=== PATIENT | female | born 1995 | race Caucasian/White ===

== ENCOUNTER 2016-06-26 11:37 | Outpatient (CLI) | payer MEDICAID | END 2016-06-26 11:38 | disposition home or self-care (01) | DX: Z36 Encounter for antenatal screening of mother (principal) ==

== ENCOUNTER 2016-10-16 08:58 | Outpatient (CLI) | payer MEDICAID ==
[2016-10-16 10:31] LABS: BASOPHILS % (AUTO) 0.1 %; EOSINOPHILS % (AUTO) 0.5 %; HCT - HEMATOCRIT 31.2 % (37.0-47.0); HGB - HEMOGLOBIN 10.7 g/dL (12.0-16.0); LYMPHOCYTES # (AUTO) 0.5 10^3/uL (1.5-3.5); MEAN CORPUSCULAR HEMOGLOBIN 28.9 pg (27.0-31.0); MEAN CORPUSCULAR HGB CONC 34.4 g/dL (32.0-36.0); MEAN PLATELET VOLUME 8.5 fL (7.9-10.8); MONOCYTES # (AUTO) 0.4 10^3/uL (0.0-1.0); NEUTROPHILS # (AUTO) 8.9 10^3/uL (1.5-6.6); NEUTROPHILS % (AUTO) 90.4 %; RED BLOOD COUNT 3.71 10^6/uL (4.20-5.40); RED CELL DISTRIBUTION WIDTH 12.8 % (12.0-15.0); UNCORRECTED WHITE BLOOD COUNT 9.8 x10^3/uL; WHITE BLOOD COUNT 9.8 x10^3/uL (4.8-10.8)
[2016-10-16 10:32] LABS: BILIRUBIN,URINE NEGATIVE (NEGATIVE); PH,URINE 6.5 PH (5.0-7.5)
[2016-10-16 10:39] LABS: UR CULTURE IF IND INDICATED; WBC,URINE 0-3 /HPF (0-5)
--- NOTE | 2016-10-16 16:36 | Ultrasound Preliminary Report ---
Exam: US Retroperitoneal Limited IMPRESSION: 1. No right renal mass, stones or hydronephrosis. 2. Bladder and left kidney not imaged. [facility] SITE ID: [id number]
[2016-10-16 17:01] VITALS: BP 114/63
--- NOTE | 2016-10-16 18:14 | Ultrasound Report ---
EXAM: RENAL ULTRASOUND EXAM DATE: 10/16/2016 02:53 PM. CLINICAL HISTORY: Right flank pain, possible kidney stone. COMPARISON: None. TECHNIQUE: Real-time scanning was performed with static images obtained. FINDINGS: Right Kidney: 10.3 x 4.5 x 4.6 cm. Normal echotexture with no stones, contour-deforming masses, or hy dronephrosis. Left Kidney: Not imaged. Bladder: Not imaged. IMPRESSION: 1. No right renal mass, stones or hydronephrosis. 2. Bladder and left kidney not imaged. [facility] Referring Provider Line: [phone] SITE ID: [id number]
--- NOTE | 2016-10-17 07:33 | DISCHARGE SUMMARY ---
DATE OF ADMISSION: 10/16/2016 DATE OF DISCHARGE: 10/16/2016 DIAGNOSES: 1. A 22 week 2 day gestation. 2. Maternal history of Tetralogy of Fallot. 3. Abdominal pain. 4. Right flank pain. The patient is a 20-year-old prima at 22 weeks 2 days gestation who reports yesterday decreas ed movement accompanied by a 6/10 bilateral lower abdominal pain with some spastic component. T his radiated into the lumbar region. She has known history Tetralogy of Fallot and has been referred on to [facility]. She has no fevers, foul discharge, or dysuria. She has had no recent fever, chills, or night sweats. There are no upper respiratory infect ion symptoms. Negative nausea, vomiting, and diarrhea. PHYSICAL EXAMINATION: GENERAL: Well groomed, pleasant, attended by mother and father. VITAL SIGNS: Temperature 98.4, heart rate 70, blood pressure 111/67, respirations 16. ABDOMEN: No epigastric tenderness. No hepatosplenomegaly. Right flank pain to percussion. No left fla nk pain. Uterus appropriate size for dates. Mild tenderness in both lower segments consistent with round ligam ent pain. Pelvic exam offered, but declined. Obstetric ultrasound preliminary report: Viable IUP, vertex with growth consistent with LMP. VIPIN is 1 3.7; cervix 139. Renal ultrasound: No evidence of urolithiasis. LABORATORY DATA: White count 9.8, hemoglobin 10.7, normal indices. Urinalysis clear yellow, protein, glucose, ketones, blood negative. Nitrite negative. Some leukocyte esterase, culture pending. ASSESSMENT: This patient is at 22 weeks gestation and complains of lower abdominal pain which may be consistent with round ligament pain. However, her right flank pain is not explained. There is no bloo d in the urine or evidence of stone on ultrasound. Possibly this reflects muscle strain, but there is nothing in her history to indicate over-exertion. PLAN: The patient is discharged home to followup with her high risk appointment on Sunday at the [facility]. She was given warning signs and call back instructions. If her final ultrasound s are significantly changed we will notify patient right away. JOB #: [id number] EXT JOB #:[id number]
--- NOTE | 2016-10-17 08:19 | Ultrasound Report ---
OB FOLLOWUP: 10/16/2016 CLINICAL INDICATION: Decreased movement. TECHNIQUE: Real-time scanning was performed with telesales representative static images obtained. LAST MENSTRUAL PERIOD 05/13/2016 Clinical Age 22 weeks 2 days US Age 22 weeks 1 day EFW Hadlock 505 g EFW% Hadlock 42% Heart Rate 134 bpm EDC 02/17/2017 US EDC 02/18/2017 BPD Hadlock 21 weeks 4 days; Mean mm 51.3 HC Hadlock 21 weeks 6 days; Mean mm 196.3 AC Hadlock 22 weeks 5 days; Mean mm 179.0 FL Hadlock 22 weeks 2 days; Mean mm 38.4 Presentation --- Placental Location posterior Cervical Length 3.8 cm Amniotic Fluid 13.85 cm FINDINGS: There is a single viable intrauterine gestation, in variable position. heart rate is 134 BPM. The placenta is posterior, without evidence of previa. Amniotic fluid volume is normal, with an VIPIN of 13.9. The cervix is unremarkable, measuring 3.8 cm. By size, the fetus measures 22.1 weeks (22.3 weeks by LMP). IMPRESSION: SINGLE VIABLE INTRAUTERINE GESTATION, WITH SIZE IN KEEPING WITH LMP DATING. POSTERIOR PLACENTA, WITHOUT EVIDENCE OF PREVIA. NORMAL VIPIN. NO EVIDENCE OF CERVICAL FUNNELLING. MTDD
--- NOTE | 2016-10-21 00:22 | Labor Flowsheet ---
Labor Flowsheet Datetime Report Generated by CPN: 10/21/2016 00:22 Datetime: 10/21/2016 00:09 Pulse: 73 SpO2 (%): 99 Datetime: 10/21/2016 00:04 VITAL SIGNS NBP Sys/Rebecca/Mean (mmHg): 137 : 83 : 94 Temperature (F): 97.9 Temperature (C): 36.6 Temperature (C): 36.6
== END 2016-10-16 16:55 | disposition home or self-care (01) ==
LOC: WFO 08:58 → FBP 08:59 → WFO 16:55
PROVIDERS: ATTEND Obstetrics & Gynecology
DX: O36.8120 Decreased fetal movements, second trimester, not applicable or unspecified (principal); Z3A.22 22 weeks gestation of pregnancy; O99.89 Other specified diseases and conditions complicating pregnancy, childbirth and the puerperium; R10.30 Lower abdominal pain, unspecified; Q21.3 Tetralogy of Fallot
CPT/HCPCS: 36415; 76775; 76816; 80306; 81001; 85025; 87086; 99213

== ENCOUNTER 2016-11-06 08:00 | Outpatient (CLI) | payer MEDICAID | END 2016-11-06 23:59 | disposition home or self-care (01) | LOC: LAB.WCP 08:00 | PROVIDERS: ATTEND Physician Assistant Medical | DX: N39.0 Urinary tract infection, site not specified (principal) | CPT/HCPCS: 87077; 87086 ==

== ENCOUNTER 2016-12-22 15:43 | Emergency (ER) | payer OTHER, MEDICAID ==
--- NOTE | 2016-12-22 19:06 | ED Physician Documentation ---
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 has been having pain near pubic symphysis for a little while, hurts to get up and walk etc today slipped on wet floor at work and fell in a sort of one leg forward one leg backward splits pain to pubic symphysis much worse did not hit abd but having RUQ pain now no bleeding, no leaking, has been having mucous dc for a while already checked by OB no head or neck injury Review of Systems Cardiac: denies: Chest pain / pressure Respiratory: denies: Dyspnea GI: reports: Abdominal Pain : reports: Now EGA (32 weeks) Musculoskeletal: denies: Neck pain Neurologic: denies: Head injury Endocrine: denies: Easy bruising / bleeding Immunocompromised: denies: Immunocompromised PD PAST MEDICAL HISTORY - Past Medical History Cardiovascular: Arrhythmia Respiratory: None Neuro: None Endocrine/Autoimmune: None GI: None EDUCATION 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: None : None HEENT: None Psych: None Musculoskeletal: None Derm: None - Past Surgical History Past Surgical History: No Cardiovascular: Pacemaker - Present Medications Home Medications: Ambulatory Orders Medication Instructions Recorded Confirmed No Known Home Medications [No 01/14/16 12/22/16 Known Home Medications] - Allergies Allergies/Adverse Reactions: Allergies Allergy/AdvReac Type Severity Reaction Status Date / Time iodine AdvReac Rash Verified 12/22/16 16:23 - Social History Does the pt smoke?: No Smoking Status: Never smoker Does the pt drink ETOH?: Yes Does the pt have substance abuse?: No - Immunizations Immunizations are current?: Yes - POLST Patient has POLST: No PD ED PE NORMAL - Vitals Vital signs reviewed: Yes - HEENT HEENT: Atraumatic - Cardiac Cardiac: RRR - Respiratory Respiratory: No respiratory distress, Clear bilaterally - Abdomen Abdomen: Soft, Other (gravis, TTP RUQ no brusing, no palp ctx) - Female Female : Other (TTP over pubi c sumphysis pelvis otherwise stable and NT) - Derm Derm: Normal color - Extremities Extremities: No deformity - Neuro Neuro: No motor deficit, No sensory deficit Results - Vitals Vitals: Vital Signs - 24 hr 12/22/16 12/22/16 15:47 19:30 Temperature 36.8 C 36.3 C L Heart Rate 70 70 Respiratory 16 18 Rate Blood Pressure 121/61 131/68 H O2 Saturation 998 H 100 Oxygen O2 Source Room air - Rads (name of study) ruq sono Radiology: See rad report (no FF, there are 2 spleens in UQ c/w prior CT with mirror image abd anatomy) PD MEDICAL DECISION MAKING - ED course ED course: pelvic pain seems to be pubic symphysis laxity likely 2/2 state and worse after injury - hx and exam do not suggest fx and I explained why xray not appropriate at this time will sono ruq for FF as well as OB sono to eval for abruption pt thinks she is AB + : no vag bleed or abd blow so do not think would need rhogam even if RH neg d/w OB Dr Mcduffie and she rec pt come over to OB for monitoring last VS BP was high - pt already in L&D - I called over to advise L&D staff Departure - Departure Disposition: 01 Home, Self Care Clinical Impression: Pain in symphysis pubis during Fall Qualifiers: Encounter type: initial encounter Qualified Code(s): W19.XXXA - Unspecified fall, initial encounter Qualifiers: Weeks of gestation: 32 weeks Qualified Code(s): Z3A.32 - 32 weeks gestation of Condition: Good Comments: I don't think you have a fracture of the pelvis, - the pain seems to be localized of the pubic symphysis and not the bones - this joint stretches during normally and was likely aggravated by the fall The ultrasounds do not show any internal bleeding or any tearing of the placenta Please go over to Labor and Delivery now for monitoring Dr Mcduffie will meet you there
[2016-12-22] MEDS ORDERED: ACETAMINOPHEN 325 MG TABLET PO STA (19:09)
[2016-12-22] MEDS ORDERED: ACETAMINOPHEN 325 MG TABLET PO ONE (19:20)
--- NOTE | 2016-12-22 19:21 | Ultrasound Preliminary Report ---
Exam: US Abdomen Limited Impression: 1. No free fluid in the upper or lower abdomen. 2. There are 2 spleens visualized in the right upper quadrant, consistent with the findings seen on t he previous abdominal CT of 01/14/2016, with mirror image abdominal anatomy. SITE ID: [id number]
--- NOTE | 2016-12-22 19:24 | Ultrasound Report ---
EXAM: ABDOMEN ULTRASOUND LIMITED, RUQ EXAM DATE: 12/22/2016 06:51 PM. CLINICAL HISTORY: Fall ruq pain, , anatomic variant of abdomen anatomy. COMPARISON: CT abdomen 01/14/2016. TECHNIQUE: Real-time scanning was performed with static images obtained. FINDINGS: A right upper quadrant ultrasound was performed. There are 2 spleens visualized in the right upper qu adrant. The spleens demonstrate homogeneous vascularity without adjacent fluid collection. One spleen measures 14 x 9.7 x 5.7 cm. A second spleen measures 9.3 x 4.6 x 2.3 cm. No right upper quadrant or left upper quadrant free fluid. No lower quadrant free fluid. Impression: 1. No free fluid in the upper or lower abdomen. 2. There are 2 spleens visualized in the right upper quadrant, consistent with the findings seen on t he previous abdominal CT of 01/14/2016, with mirror image abdominal anatomy. Referring Provider Line: [phone] SITE ID: [id number]
--- NOTE | 2016-12-22 19:33 | Ultrasound Preliminary Report ---
Exam: US OB Limited IMPRESSION: Intrauterine fetus with cardiac activity and no ultrasound evidence of placental abruptio [place] PEPPER SITE ID: [id number]
--- NOTE | 2016-12-22 19:35 | Ultrasound Report ---
EXAM: ULTRASOUND OBSTETRICAL LIMITED EXAM DATE: 12/22/2016 06:51 PM. CLINICAL HISTORY: Fall pelvis pain, ? abruption. COMPARISON: None. TECHNIQUE: Realtime ultrasound scanning was to images obtained. Transabdominal ultrasound performed. FINDINGS: Clinical age 31 weeks 6 days and clinical EDC 02/17/2017. The placenta is posterior. No evidence of placental abruption. Single intrauterine fetus in cephalic inferior position. cardiac activity is present with heart rate 123 bpm. Amniotic fluid volume subjectively appears normal. The VIPIN is 17.7 cm. Maximum vertica l pocket 5.4 cm. IMPRESSION: Intrauterine fetus with cardiac activity and no ultrasound evidence of placental abruptio nTyler PEPPER Referring Provider Line: [phone] SITE ID: [id number]
[2016-12-22 20:02] VITALS: BP 131/68
[2016-12-22] MEDS ORDERED: ACETAMINOPHEN 325 MG TABLET PO PRN (20:30)
== END 2016-12-22 19:52 | disposition home or self-care (01) ==
LOC: ED 15:43
DX: O99.89 Other specified diseases and conditions complicating pregnancy, childbirth and the puerperium (principal); M79.1 Myalgia; R10.2 Pelvic and perineal pain; R10.11 Right upper quadrant pain; R10.811 Right upper quadrant abdominal tenderness; W18.49XA Other slipping, tripping and stumbling without falling, initial encounter; Y92.129 Unspecified place in nursing home as the place of occurrence of the external cause; Y99.0 Civilian activity done for income or pay; Q89.09 Congenital malformations of spleen; Z3A.31 31 weeks gestation of pregnancy; Z95.0 Presence of cardiac pacemaker; Z87.74 Personal history of (corrected) congenital malformations of heart and circulatory system
CPT/HCPCS: 1040M; 76705; 76815; 99283; A9270; 99212

== ENCOUNTER 2016-12-22 19:21 | Outpatient (CLI) | payer OTHER, MEDICAID ==
[2016-12-23 00:41] VITALS: BP 121/65
== END 2016-12-23 01:05 | disposition home or self-care (01) ==
LOC: WFO 19:21 → FBP 20:02 → WFO 12-23 01:05
PROVIDERS: ATTEND Obstetrics & Gynecology
DX: O99.89 Other specified diseases and conditions complicating pregnancy, childbirth and the puerperium (principal); M79.1 Myalgia; R10.2 Pelvic and perineal pain; W18.49XA Other slipping, tripping and stumbling without falling, initial encounter; Y92.129 Unspecified place in nursing home as the place of occurrence of the external cause; Y99.0 Civilian activity done for income or pay; Z3A.31 31 weeks gestation of pregnancy; Q89.09 Congenital malformations of spleen; Z95.0 Presence of cardiac pacemaker; Z87.74 Personal history of (corrected) congenital malformations of heart and circulatory system
CPT/HCPCS: 99212

== ENCOUNTER 2017-02-10 20:42 | Outpatient (CLI) | payer MEDICAID ==
[2017-02-10] MEDS ORDERED: SODIUM CHLORIDE FLUSH 0.9% 10 ML SYRINGE IVP ONE (21:11)
[2017-02-10] MEDS ORDERED: LACTATED RINGERS 1,000 ML IV ONE (21:12)
[2017-02-10 21:38] LABS: BASOPHILS % (AUTO) 0.5 %; EOSINOPHILS # (AUTO) 0.1 10^3/uL (0.0-0.7); EOSINOPHILS % (AUTO) 0.8 %; HCT - HEMATOCRIT 30.2 % (37.0-47.0); HGB - HEMOGLOBIN 9.8 g/dL (12.0-16.0); LYMPHOCYTES # (AUTO) 1.4 10^3/uL (1.5-3.5); MEAN CORPUSCULAR HEMOGLOBIN 24.5 pg (27.0-31.0); MEAN CORPUSCULAR HGB CONC 32.6 g/dL (32.0-36.0); MEAN CORPUSCULAR VOLUME 75.2 fL (81.0-99.0); MEAN PLATELET VOLUME 9.3 fL (7.9-10.8); MONOCYTES # (AUTO) 0.6 10^3/uL (0.0-1.0); MONOCYTES % (AUTO) 6.9 %; NEUTROPHILS # (AUTO) 7.2 10^3/uL (1.5-6.6); NEUTROPHILS % (AUTO) 76.8 %; NUCLEATED RED BLOOD CELLS AUTO 0.1 /100WBC; RED BLOOD COUNT 4.02 10^6/uL (4.20-5.40); RED CELL DISTRIBUTION WIDTH 14.7 % (12.0-15.0); UNCORRECTED WHITE BLOOD COUNT 9.3 x10^3/uL; WHITE BLOOD COUNT 9.3 x10^3/uL (4.8-10.8)
[2017-02-10] MEDS ORDERED: LACTATED RINGERS 1,000 ML IV SCH (22:00)
[2017-02-10] MEDS ORDERED: MAGNESIUM SULFATE 2 GRAM 2 GM/50 ML BAG IV SCH (22:00)
[2017-02-10 22:18] VITALS: BP 146/67
--- NOTE | 2017-02-10 23:20 | PREOP HISTORY & PHYSICAL ---
DATE OF ADMISSION/SURGERY: IDENTIFICATION: A 21-year-old G2, P0 female with EDC 02/17/2017, making her 39.0 weeks. CHIEF COMPLAINT: Contractions. HISTORY OF PRESENT ILLNESS: The patient started contractions at roughly 1700. They became stronger wi th time. She called [facility] and was told to come here for evaluation. At her last visit, she was noted to be 2 cm, 75% effaced. She was scheduled for induction this comin g Sunday. She was initially seen back here at [facility] early in her , w as disengaged to the [facility] in that she had a history of having malformation of tet ralogy of Fallot, requiring 3 cardiac surgeries as well as 2 pacemakers. PAST MEDICAL HISTORY: Tetralogy of Fallot. SURGICAL HISTORY: Open heart surgery x3, pacemaker x2. ALLERGIES: IODINE. CURRENT MEDICATIONS: vitamins. SOCIAL HISTORY: The patient has a boyfriend who is involved. OBSTETRICAL HISTORY: Her OB care has been done at [facility] where she has MFM, as well as Cardiology components. PHYSICAL EXAMINATION VITAL SIGNS: Temperature 37.1, pulse 76, blood pressure 135/80, respirations 20, 97% saturation on ro om air. HEENT: Pupils are equal, round. Extraocular muscles are intact. CARDIOVASCULAR: Regular rate and rhythm with a grade 3-4/6 holosystolic murmur, heard best at the lef t second intercostal space. LUNGS: Powell are clear without rales or wheezes. No evidence of any JVD. PELVIC: Uterus was gravid, 39 cm. The cervix is 4 cm, 90% effaced, -2 vertex, membranes intact. EXTRE MITIES: Her DTRs were 2+ without edema. OBSTETRICAL: She has reactive NST with contractions every 5 minutes. IMPRESSION 1. A 21-year-old G2, P0 female at 39.0 weeks by history. 2. History of tetralogy of Fallot, requiring 3 open heart surgeries. 3. Heart murmur, 3-4/6. 4. Active labor. PLAN: Discussed with Dr. Calle at [facility] and felt that transfer to the [facility] would be the best option. It was decided that a helicopter would be the fas test and best way to go. She was given IV fluids of 500 mL of LR. Terbutaline, as well as magnesium s ulfate were not utilized because of the concerns of her cardiac situation. JOB #: [id number] EXT JOB #:[id number]
== END 2017-02-10 22:35 | disposition short-term general hospital (02) ==
LOC: WFO 20:42 → FBP 20:44 → WFO 22:35
PROVIDERS: ATTEND Obstetrics & Gynecology
DX: O09.893 Supervision of other high risk pregnancies, third trimester (principal); R01.1 Cardiac murmur, unspecified; Z3A.39 39 weeks gestation of pregnancy; Z87.74 Personal history of (corrected) congenital malformations of heart and circulatory system; Z95.0 Presence of cardiac pacemaker
CPT/HCPCS: 36415; 85025; 86850; 86900; 86901; 99214; J7120

== ENCOUNTER 2017-03-07 08:00 | Outpatient (CLI) | payer MEDICAID | END 2017-03-07 23:59 | disposition home or self-care (01) | LOC: LAB.WCP 08:00 | PROVIDERS: ATTEND Physician Assistant Medical | DX: K12.0 Recurrent oral aphthae (principal) | CPT/HCPCS: 81599; 87255 ==

== ENCOUNTER 2017-06-07 08:16 | Outpatient (CLI) | payer MEDICAID ==
--- NOTE | 2017-06-07 10:19 | Ultrasound Report ---
PELVIC ULTRASOUND: 06/07/2017 COMPARISON: No comparison. INDICATION: Vaginal bleeding since delivery January 2017. TECHNIQUE: Transabdominal pelvic ultrasound performed for global evaluation. Transvaginal pelvic ultrasound performed for detailed evaluation. Real-time scanning performed and static images obtained. FINDINGS: Uterus: 8.5 x 5.1 x 3.8 cm. Volume 86 mL. There is a 5 mm echogenic focus in the endometrium at the fundus. This is nonspecific, but could represent hemorrhage, polyp or mass. The endometrial stripe measures 4 mm. Right ovary: 2.7 x 2.5 x 2.4 cm. Volume 8 mL. There is a complex focus within the right ovary. It contains a very echogenic area, which is suspicious for fat. There is also a small echogenic focus with shadowing suspicious for calcification. Overall findings are suspicious for a dermoid. The ovary demonstrates normal appearing blood flow. Left ovary: 2.6 x 1.8 x 1.6 cm. Volume 4 mL. The left ovary has a normal appearance with normal appearing blood flow. No free fluid. IMPRESSION: COMPLEX FOCUS IN THE RIGHT OVARY IS SOMEWHAT SUSPICIOUS FOR A DERMOID. THIS MAY BE FURTHER EVALUATED WITH PELVIS MRI. UNUSUAL ECHOGENIC AREA WITHIN THE ENDOMETRIUM MAY ALSO BE EVALUATED WITH THAT EXAMINATION. TD: 06/07/2017 10:18 [facility]ENTER[facility]
== END 2017-06-07 08:17 | disposition home or self-care (01) ==
LOC: DI 08:16
PROVIDERS: ATTEND Obstetrics & Gynecology
DX: N93.9 Abnormal uterine and vaginal bleeding, unspecified (principal)
CPT/HCPCS: 76830; 76856

== ENCOUNTER 2017-10-29 15:28 | Outpatient (CLI) | payer MEDICAID | END 2017-10-29 15:29 | disposition home or self-care (01) | LOC: LAB.WCP 15:28 | PROVIDERS: ATTEND Family Medicine | DX: Z33.1 Pregnant state, incidental (principal) | CPT/HCPCS: 36415; 84702 ==

== ENCOUNTER 2017-11-06 12:30 | Outpatient (CLI) | payer MEDICAID | END 2017-11-06 12:31 | disposition home or self-care (01) | LOC: LAB 12:30 | PROVIDERS: ATTEND Family Medicine | DX: O09.899 Supervision of other high risk pregnancies, unspecified trimester (principal); Q21.3 Tetralogy of Fallot | CPT/HCPCS: 36415; 84702; 84703 ==

== ENCOUNTER 2017-11-15 11:25 | Emergency (ER) | payer MEDICAID ==
[2017-11-15 12:02] LABS: BASOPHILS % (AUTO) 0.3 %; EOSINOPHILS # (AUTO) 0.1 10^3/uL (0.0-0.7); EOSINOPHILS % (AUTO) 1.4 %; LYMPHOCYTES # (AUTO) 1.8 10^3/uL (1.5-3.5); LYMPHOCYTES % (AUTO) 21.4 %; MEAN CORPUSCULAR HEMOGLOBIN 24.8 pg (27.0-31.0); MEAN CORPUSCULAR HGB CONC 33.6 g/dL (32.0-36.0); MEAN CORPUSCULAR VOLUME 73.9 fL (81.0-99.0); MEAN PLATELET VOLUME 8.6 fL (7.9-10.8); MONOCYTES # (AUTO) 0.6 10^3/uL (0.0-1.0); MONOCYTES % (AUTO) 6.7 %; NEUTROPHILS % (AUTO) 70.2 %; PLT - PLATELET COUNT 192 10^3/uL (130-450); RED BLOOD COUNT 4.83 10^6/uL (4.20-5.40); RED CELL DISTRIBUTION WIDTH 16.9 % (12.0-15.0); WHITE BLOOD COUNT 8.5 x10^3/uL (4.8-10.8)
[2017-11-15 12:15] LABS: ALBUMIN 4.4 g/dL (3.2-5.5); ALBUMIN/GLOBULIN RATIO 1.4 (1.0-2.2); BILIRUBIN,TOTAL 0.9 mg/dL (0.2-1.0); CALCIUM 9.2 mg/dL (8.5-10.3); CREATININE 0.8 mg/dL (0.4-1.0); TOTAL PROTEIN 7.5 g/dL (6.7-8.2)
--- NOTE | 2017-11-15 12:59 | ED Physician Documentation ---
History of Present Illness - Stated complaint Stated Complaint: ABD HEART BEAT-PX,ABD PX, - Chief complaint Chief Complaint: Cardiac - History obtained from History obtained from: Patient - Additonal information Additional information: 21-year-old female presents the emergency department with complaints of chest pain, palpitations and shortness of breath over the past 2 days which has progressively worsened. The patient has a complicated history which includes tetralogy of fallot which has been repaired and a valve replacement with a bovine valve and a pacemaker. The patient also reports being , the patient reports abdominal pain but denies vaginal bleeding, vaginal discharge or dysuria. Presently the patient is denying chest pain, palpitations or shortness of breath. Symptoms are described as moderate. No specific triggering factors. No other associated symptoms. Review of Systems Constitutional: denies: Fever, Chills Eyes: denies: Loss of vision Ears: denies: Loss of hearing, Ear pain Throat: denies: Dental pain / toothache Cardiac: reports: Chest pain / pressure, Palpitations Respiratory: reports: Dyspnea GI: reports: Abdominal Pain : denies: Dysuria, Hematuria, Vaginal bleeding Skin: denies: Rash Musculoskeletal: denies: Neck pain Neurologic: denies: Generalized weakness Immunocompromised: denies: Chemotherapy PD PAST MEDICAL HISTORY - Past Medical History Cardiovascular: Arrhythmia, Other Respiratory: None Neuro: None Endocrine/Autoimmune: None GI: None GUEST 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 Pacemaker 8 years ago. - Past Surgical History Past Surgical History: No Cardiovascular: Pacemaker - Present Medications Home Medications: Ambulatory Orders Medication Instructions Recorded Confirmed No Known Home Medications [No 01/14/16 12/22/16 Known Home Medications] - Allergies Allergies/Adverse Reactions: Allergies Allergy/AdvReac Type Severity Reaction Status Date / Time iodine AdvReac Rash Verified 11/15/17 11:34 - Social History Does the pt smoke?: No Smoking Status: Never smoker Does the pt drink ETOH?: No Does the pt have substance abuse?: No - Immunizations Immunizations are current?: Yes - POLST Patient has POLST: No PD ED PE NORMAL - General General: Alert and oriented X 3, No acute distress - HEENT HEENT: Atraumatic, PERRL, EOMI, Ears normal - Neck Neck: Supple, no meningeal sign - Cardiac Cardiac: RRR, Strong equal pulses, Other (Patient has a murmur from the bovine valve) - Respiratory Respiratory: No respiratory distress - Abdomen Abdomen: Soft, Non distended. No: Non tender (ThePatient has generalized abdominal tenderness, no rebound or peritoneal signs) - Derm Derm: Normal color - Extremities Extremities: No deformity - Neuro Neuro: Alert and oriented X 3, Normal speech - Psych Psych: Normal affect Results - Vitals Vitals: Vital Signs - 24 hr 11/15/17 11/15/17 11/15/17 11:30 13:31 16:23 Temperature 36.3 C L 36.8 C Heart Rate 59 L 85 72 Respiratory 16 22 16 Rate Blood Pressure 140/79 H 133/54 H 120/57 L O2 Saturation 100 100 100 Oxygen O2 Source Room air - EKG (time done) 11:41 AM Rate: Rate (enter#) Rhythm: NSR Intervals: Normal [place], RBBB Ischemia: Non specific changes Other comments: Other comments (Sinus rhythm with right bundle branch block and left anterior fascicular block, no acute ischemic changes) - Labs Labs: Laboratory Tests 11/15/17 11/15/17 11/15/17 11:45 11:45 11:45 WBC 8.5 RBC 4.83 Hgb 12.0 Hct 35.7 L MCV 73.9 L MCH 24.8 L MCHC 33.6 RDW 16.9 H Plt Count 192 MPV 8.6 Neut # (Auto) 6.0 Lymph # (Auto) 1.8 [place] # (Auto) 0.6 Eos # (Auto) 0.1 Baso # (Auto) 0.0 Absolute Nucleated RBC 0.00 Nucleated RBC % 0.0 Sodium 133 L Potassium 3.4 L Chloride 100 L Carbon Dioxide 24 Anion Gap 9.0 BUN 10 Creatinine 0.8 Estimated GFR (MDRD) 91 Glucose 91 Calcium 9.2 Total Bilirubin 0.9 AST 23 ALT 25 Alkaline Phosphatase 59 Troponin I < 0.04 Total Protein 7.5 Albumin 4.4 Globulin 3.1 Albumin/Globulin Ratio 1.4 Lipase 28 HCG, Quant Urine Color Urine Clarity Urine pH Ur Specific Wallace Urine Protein Urine Glucose (UA) Urine Ketones Urine Occult Blood Urine Nitrite Urine Bilirubin Urine Urobilinogen Ur Leukocyte Esterase Urine RBC Urine WBC Ur Squamous Epith Cells Urine Bacteria Ur Microscopic Review Urine Culture Comments Blood Type Antibody Screen 11/15/17 11/15/17 11/15/17 11:45 12:00 13:33 WBC RBC Hgb Hct MCV MCH MCHC RDW Plt Count MPV Neut # (Auto) Lymph # (Auto) [place] # (Auto) Eos # (Auto) Baso # (Auto) Absolute Nucleated RBC Nucleated RBC % Sodium Potassium Chloride Carbon Dioxide Anion Gap BUN Creatinine Estimated GFR (MDRD) Glucose Calcium Total Bilirubin AST ALT Alkaline Phosphatase Troponin I Total Protein Albumin Globulin Albumin/Globulin Ratio Lipase HCG, Quant 93071.00 Urine Color YELLOW Urine Clarity CLEAR Urine pH 6.5 Ur Specific Wallace 1.020 Urine Protein NEGATIVE Urine Glucose (UA) NEGATIVE Urine Ketones NEGATIVE Urine Occult Blood NEGATIVE Urine Nitrite NEGATIVE Urine Bilirubin NEGATIVE Urine Urobilinogen 0.2 (NORMAL) Ur Leukocyte Esterase TRACE H Urine RBC 0-5 Urine WBC 4-5 Ur Squamous Epith Cells MOD Squamous H Urine Bacteria Few Ur Microscopic Review INDICATED Urine Culture Comments NOT INDICATED Blood Type O POSITIVE Antibody Screen NEGATIVE - Rads (name of study) US GUEST RELATIONS RECEPTIONIST Radiology: Final report received (1. Single intrauterine at EGA 6 weeks 3 days based on mean gestational sac diameter. A pole and cardiac activity are not yet seen. Suggest follow-up ultrasound in 7-10 days for reassessment of viability. ) PD MEDICAL DECISION MAKING - ED course ED course: The patient declined a CT angiogram to rule out a more serious etiology for the source of her symptoms. The patient did not want any further workup regarding her chest pain and would prefer to follow-up with her cooky machine operator as an outpatient. I discussed with her the risks of a undiagnosed condition which could result in disability or . The patient is comfortable with the ambiguity of her chest pain and currently feels comfortable following up as an outpatient. I advised that she should return to the emergency department at any point for reevaluation. The patient's shows an intrauterine , I discussed with her the recommendations of the radiologist for repeat ultrasound to assess viability. The patient understands and agrees. I discussed warning signs and recommended returning to the emergency department any point for reevaluation. - Sepsis Event Vital Signs: Vital Signs - 24 hr 11/15/17 11/15/17 11/15/17 11:30 13:31 16:23 Temperature 36.3 C L 36.8 C Heart Rate 59 L 85 72 Respiratory 16 22 16 Rate Blood Pressure 140/79 H 133/54 H 120/57 L O2 Saturation 100 100 100 Oxygen O2 Source Room air Departure - Departure Disposition: 01 Home, Self Care Clinical Impression: Heart palpitations, Abdominal pain affecting Chest pain Qualifiers: Chest pain type: other chest pain Qualified Code(s): R07.89 - Other chest pain Dyspnea Qualifiers: Dyspnea type: unspecified Qualified Code(s): R06.00 - Dyspnea, unspecified Qualifiers: Weeks of gestation: less than 8 weeks Qualified Code(s): Z3A.01 - Less than 8 weeks gestation of Condition: Good Instructions: Preg 1st Trimester, Preg 1st Trimester Coping, Preg Common Questions, ED Dyspnea Shortness of Breath, ED Chest Pain O Follow-Up: Luis Alfredo Cardona MD [Primary Care Provider] - Sharif Polanco MD [Provider Admit Priv/Credential] - Adelfo Vallecillo MD [Provider Admit Priv/Credential] - Within 1 week (Please follow-up with SENIOR FINANCIAL REPORTING ANALYST in 1 week for repeat ultrasound) Comments: You declined a CT scan of your chest to further evaluate your chest pain and shortness of breath. You understand you are at risk for an undiagnosed condition which left untreated could result in disability or . Please follow-up with your cooky machine operator as scheduled. Please return to the emergency department immediately for worsening symptoms or any concerns at any point
[2017-11-15] MEDS ORDERED: SODIUM CHLORIDE 0.9% 1,000 ML IV ONE (13:16)
[2017-11-15] MEDS ORDERED: POTASSIUM CHLORIDE 20 MEQ TABLET PO STA (13:16)
[2017-11-15 13:33] LABS: BILIRUBIN,URINE NEGATIVE (NEGATIVE); GLUCOSE, URINE (UA) NEGATIVE (NEGATIVE); KETONES,URINE (UA) NEGATIVE (NEGATIVE); LEUKOCYTE ESTERASE, URINE TRACE (NEGATIVE); NITRITE,URINE NEGATIVE (NEGATIVE); OCCULT BLOOD,URINE NEGATIVE (NEGATIVE); PH,URINE 6.5 PH (5.0-7.5); PROTEIN,URINE NEGATIVE (NEGATIVE); UROBILINOGEN,URINE 0.2 (NORMAL) E.U./dL (NORMAL)
[2017-11-15 13:49] LABS: BACTERIA,URINE Few /HPF (None Seen); CLARITY,URINE CLEAR (CLEAR); RBC,URINE 0-5 /HPF (0-5); SQUAMOUS EPITHELIAL CELL,UR MOD Squamous (<= Few)
--- NOTE | 2017-11-15 15:22 | Ultrasound Report ---
Reason: with pain Procedure Date: 11/15/2017 Accession Number: [id number] / [id number] Procedure: US - OB First Trimester CPT Code: FULL RESULT: EXAM: FIRST TRIMESTER OBSTETRIC ULTRASOUND (Less than 11 weeks) EXAM DATE: 11/15/2017 03:03 PM. CLINICAL HISTORY: Cramping, hCG 25,696 LMP: Unknown. COMPARISONS: 06/07/2017. TECHNIQUE: Transabdominal and transvaginal ultrasound examination with static image documentation. CLINICAL DATES: Uncertain. ASSESSMENT: Gestational Sac: Single intrauterine. Mean gestational sac diameter: 16 mm = 6 weeks 3 days. Embryo: CRL (crown-rump length) not seen. Cardiac activity: Not seen. Yolk sac: Not definitely seen. Amniotic fluid: Not accurately assessed at this gestational age. Early placenta: Not visible at this gestational age. Other: Small perigestational fluid collection demonstrated 1.1 x 0.5 x 1.2. MATERNAL STRUCTURES: Uterus: Anteverted. Unremarkable. Cervix: Closed. Right Ovary/Adnexa: 1.7 x 1.6 x 1.8 cm echogenic focus, likely a dermoid, unchanged. The ovary measures 3.4 x 2.1 x 3.9 cm, volume 14.6 cc. Left Ovary/Adnexa: Left ovary not seen. No adnexal masses. Free Fluid: None. Other: None. IMPRESSION: 1. Single intrauterine at EGA 6 weeks 3 days based on mean gestational sac diameter. A pole and cardiac activity are not yet seen. Suggest follow-up ultrasound in 7-10 days for reassessment of viability. RADIA
[2017-11-15 16:24] VITALS: BP 120/57
== END 2017-11-15 16:24 | disposition home or self-care (01) ==
LOC: ED 11:25
DX: O99.89 Other specified diseases and conditions complicating pregnancy, childbirth and the puerperium (principal); R10.9 Unspecified abdominal pain; R07.89 Other chest pain; R06.00 Dyspnea, unspecified; I45.10 Unspecified right bundle-branch block; Q21.3 Tetralogy of Fallot; Z95.0 Presence of cardiac pacemaker; Z3A.01 Less than 8 weeks gestation of pregnancy
CPT/HCPCS: 36415; 76801; 76817; 80053; 81001; 83690; 84484; 84702; 85025; 86850; 86900; 86901; 93005; 96360; 99284; A9270; 81003; 87086

== ENCOUNTER 2018-03-04 14:30 | Outpatient (CLI) | payer MEDICAID | END 2018-03-04 23:59 | disposition home or self-care (01) | LOC: LAB.WCP 14:30 | PROVIDERS: ATTEND Nurse Practitioner | DX: Z33.1 Pregnant state, incidental (principal) | CPT/HCPCS: 36415; 84702 ==

== ENCOUNTER 2018-03-08 10:29 | Emergency (ER) | payer MEDICAID ==
[2018-03-08 11:22] LABS: BILIRUBIN,URINE NEGATIVE (NEGATIVE); GLUCOSE, URINE (UA) NEGATIVE (NEGATIVE); KETONES,URINE (UA) NEGATIVE (NEGATIVE); LEUKOCYTE ESTERASE, URINE TRACE (NEGATIVE); NITRITE,URINE NEGATIVE (NEGATIVE); OCCULT BLOOD,URINE NEGATIVE (NEGATIVE); PROTEIN,URINE NEGATIVE (NEGATIVE); UROBILINOGEN,URINE 0.2 (NORMAL) E.U./dL (NORMAL)
[2018-03-08 11:23] LABS: BASOPHILS % (AUTO) 0.2 %; EOSINOPHILS # (AUTO) 0.1 10^3/uL (0.0-0.7); EOSINOPHILS % (AUTO) 0.5 %; HGB - HEMOGLOBIN 13.3 g/dL (12.0-16.0); LYMPHOCYTES # (AUTO) 0.8 10^3/uL (1.5-3.5); LYMPHOCYTES % (AUTO) 7.1 %; MEAN CORPUSCULAR HGB CONC 34.6 g/dL (32.0-36.0); MEAN CORPUSCULAR VOLUME 78.1 fL (81.0-99.0); MEAN PLATELET VOLUME 8.9 fL (7.9-10.8); MONOCYTES # (AUTO) 0.6 10^3/uL (0.0-1.0); MONOCYTES % (AUTO) 5.6 %; NEUTROPHILS # (AUTO) 9.4 10^3/uL (1.5-6.6); NEUTROPHILS % (AUTO) 86.6 %; PLT - PLATELET COUNT 206 10^3/uL (130-450); RED BLOOD COUNT 4.94 10^6/uL (4.20-5.40); RED CELL DISTRIBUTION WIDTH 14.4 % (12.0-15.0); WHITE BLOOD COUNT 10.8 x10^3/uL (4.8-10.8)
[2018-03-08 11:27] LABS: CLARITY,URINE CLEAR (CLEAR)
[2018-03-08 11:33] LABS: ALBUMIN 4.6 g/dL (3.2-5.5); ALBUMIN/GLOBULIN RATIO 1.4 (1.0-2.2); CALCIUM 9.4 mg/dL (8.5-10.3); CREATININE 0.6 mg/dL (0.4-1.0)
[2018-03-08 11:40] LABS: BACTERIA,URINE Rare /HPF (None Seen); RBC,URINE None Seen /HPF (0-5); SQUAMOUS EPITHELIAL CELL,UR FEW Squamous (<= Few)
--- NOTE | 2018-03-08 12:16 | ED Physician Documentation ---
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 She does have a sore throat and a cough. Review of Systems Constitutional: reports: Chills Eyes: denies: Decreased vision Ears: denies: Ear pain Nose: reports: Rhinorrhea / runny nose, Congestion Throat: reports: Sore throat Cardiac: denies: Chest pain / pressure, Palpitations Respiratory: reports: Cough. denies: Dyspnea GI: reports: Abdominal Pain, Nausea. 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 HEENT: None Psych: None Musculoskeletal: None Derm: Eczema - Past Surgical History Past Surgical History: No Cardiovascular: Pacemaker - Present Medications Home Medications: Ambulatory Orders Medication Instructions Recorded Confirmed RX: Azithromycin [Zithromax] 250 mg PO DAILY #6 tablet 03/08/18 - Allergies Allergies/Adverse Reactions: Allergies Allergy/AdvReac Type Severity Reaction Status Date / Time iodine AdvReac Rash Verified 03/08/18 10:39 - Social History Does the pt smoke?: No Smoking Status: Never smoker Does the pt drink ETOH?: No Does the pt have substance abuse?: No - Immunizations Immunizations are current?: Yes - POLST Patient has POLST: No PD ED PE NORMAL - Vitals Vital signs reviewed: Yes (normal ) - General General: Alert and oriented X 3, Well developed/nourished, Other (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 ) - Neck Neck: Supple, no meningeal sign, No bony TTP - Cardiac Cardiac: RRR, Other (2/6 holosystolic murmer at LSB like a washingmachine. 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, No motor deficit, No sensory deficit, Normal speech Eye Opening: Spontaneous Motor: Obeys Commands Verbal: Oriented GCS Score: 15 - Psych Psych: Normal mood Results - Vitals Vitals: Vital Signs - 24 hr 03/08/18 03/08/18 03/08/18 10:34 12:18 14:03 Temperature 37.3 C 38 C H Heart Rate 73 72 Respiratory 18 16 Rate Blood Pressure 128/65 114/55 L O2 Saturation 100 03/08/18 14:52 Temperature 37.7 C H Heart Rate Respiratory 16 Rate Blood Pressure 108/59 L O2 Saturation Oxygen O2 Source Room air - Labs Labs: Laboratory Tests 03/08/18 03/08/18 03/08/18 10:50 10:55 10:55 WBC 10.8 RBC 4.94 Hgb 13.3 Hct 38.6 MCV 78.1 L MCH 27.0 MCHC 34.6 RDW 14.4 Plt Count 206 MPV 8.9 Neut # (Auto) 9.4 H Lymph # (Auto) 0.8 L [place] # (Auto) 0.6 Eos # (Auto) 0.1 Baso # (Auto) 0.0 Absolute Nucleated RBC 0.00 Nucleated RBC % 0.0 Sodium 132 L Potassium 3.5 Chloride 98 L Carbon Dioxide 26 Anion Gap 8.0 BUN 9 Creatinine 0.6 Estimated GFR (MDRD) 126 Glucose 96 Calcium 9.4 Total Bilirubin 1.0 AST 23 ALT 31 Alkaline Phosphatase 75 Total Protein 8.0 Albumin 4.6 Globulin 3.4 Albumin/Globulin Ratio 1.4 Lipase 20 L HCG, Quant Urine Color YELLOW Urine Clarity CLEAR Urine pH 6.0 Ur Specific [place] 1.020 Urine Protein NEGATIVE Urine Glucose (UA) NEGATIVE Urine Ketones NEGATIVE Urine Occult Blood NEGATIVE Urine Nitrite NEGATIVE Urine Bilirubin NEGATIVE Urine Urobilinogen 0.2 (NORMAL) Ur Leukocyte Esterase TRACE H Urine RBC None Seen Urine WBC 4-5 Ur Squamous Epith Cells FEW Squamous Urine Bacteria Rare Ur Microscopic Review INDICATED Urine Culture Comments INDICATED Group A Strep Rapid 03/08/18 03/08/18 10:55 12:40 WBC RBC Hgb Hct MCV MCH MCHC RDW Plt Count MPV Neut # (Auto) Lymph # (Auto) [place] # (Auto) Eos # (Auto) Baso # (Auto) Absolute Nucleated RBC Nucleated RBC % Sodium Potassium Chloride Carbon Dioxide Anion Gap BUN Creatinine Estimated GFR (MDRD) Glucose Calcium Total Bilirubin AST ALT Alkaline Phosphatase Total Protein Albumin Globulin Albumin/Globulin Ratio Lipase HCG, Quant 3604.00 Urine Color Urine Clarity Urine pH Ur Specific [place] Urine Protein Urine Glucose (UA) Urine Ketones Urine Occult Blood Urine Nitrite Urine Bilirubin Urine Urobilinogen Ur Leukocyte Esterase Urine RBC Urine WBC Ur Squamous Epith Cells Urine Bacteria Ur Microscopic Review Urine Culture Comments Group A Strep Rapid Negative - Rads (name of study) ob u/s Radiology: Prelim report reviewed (Impression: 1. of unknown location. Intrauterine fluid collection, which would represent a gestational sac, cyst, or fluid collection. If this is a gestational sac, size would correspond to gestational age of 4 weeks and 3 days. Recommend close clinical follow-up and correlation with serial beta-hCG, and follow-up ultrasound if indicated. 2. Stable right adnexal mass, likely dermoid/teratoma.), EMP read indepedently, See rad report PD MEDICAL DECISION MAKING - ED course Complexity details: reviewed results, re-evaluated patient, considered differential, d/w patient ED course: 22 y/o female with a fever and pelvic cramping is in early and U/s is obtained showing a cystic mass in the uterus and the HCG appears to be increasing as it should. There is no confirmation of intrauterine and this will require follow up by the patient for a 3rd HCG and an ultrasound at some point. She has developed a fever and chills and has a cough similar to what her daughter has and on exam she has evidence of OM. She is treated for this. Departure - Departure Disposition: 01 Home, Self Care Clinical Impression: Early stage of Otitis media Qualifiers: Otitis media type: suppurative Chronicity: acute Laterality: left Recurrence: not specified as recurrent Spontaneous tympanic membrane rupture: without spontaneous rupture Qualified Code(s): H66.002 - Acute suppurative otitis media without spontaneous rupture of ear drum, left ear Condition: Stable Instructions: ED Abdominal Pain Rule Out Ectopic, ED Otitis Media Acute Adult Follow-Up: [facility] [Provider Group] Prescriptions: RX: Azithromycin [Zithromax] 250 mg PO DAILY #6 tablet Comments: Today your is too early to see on ultrasound. You will need surveillance to include a repeat hCG and repeat ultrasound. Today your hCG was 3604 and this should be repeated this coming week. Discharge Date/Time: 03/08/18 16:06
[2018-03-08] MEDS ORDERED: ACETAMINOPHEN 325 MG TABLET PO STA (14:08)
[2018-03-08 14:53] VITALS: BP 108/59
--- NOTE | 2018-03-08 15:35 | Ultrasound Report ---
Reason: cramping 5 weeks Procedure Date: 03/08/2018 Accession Number: [id number] / [id number] Procedure: US - OB Transvaginal CPT Code: FULL RESULT: EXAM: FIRST TRIMESTER OBSTETRIC ULTRASOUND (Less than 11 weeks) EXAM DATE: 03/08/2018 01:16 PM. CLINICAL HISTORY: Cramping 5 weeks. LMP: Approximately 01/15/2018. Beta-hC COMPARISONS: Abdomen limited 12/22/2016 6:15 PM. Pelvic w/transvaginal 06/07/2017 8:33 AM. TECHNIQUE: Transabdominal and transvaginal ultrasound examination with static image documentation. CLINICAL DATES: EGA 7 weeks 3 days with SHORTY 10/22/2018 based on estimated last menstrual period. ASSESSMENT: Cystic intrauterine structures are identified with the following measurements: Gestational Sac: Single intrauterine. Mean gestational sac diameter: 5.7 mm = 4 weeks 3 days. Embryo: None identified. Cardiac activity: None identified. Yolk sac: 1.6 mm. No definite intrauterine gestation is seen. MATERNAL STRUCTURES: Uterus: Anteverted. Unremarkable. Cervix: Closed. Right Ovary/Adnexa: The ovary measures 3.4 x 2.3 x 2.9 cm, volume 11.8 cc. A well-circumscribed 2.4 x 2.0 1.9 cm echogenic lesion containing a 1.2 cm cystic portion is redemonstrated from prior studies and most likely represents a dermoid/teratoma. Left Ovary/Adnexa: The ovary measures 2.7 x 1.5 x 1.5 cm, volume 3.2 cc. Unremarkable. Free Fluid: None. Other: None. IMPRESSION: 1. of unknown location. Intrauterine fluid collection, which would represent a gestational sac, cyst, or focal fluid. If this is a gestational sac, size would correspond to a gestational age of 4 weeks and 3 days. Recommend close clinical follow-up and correlation with serial beta hCG, and follow-up ultrasound if indicated. 2. Stable right adnexal mass, likely dermoid/teratoma. RADIA
--- NOTE | 2018-03-08 15:56 | Ultrasound Report ---
Reason: cramping 5 weeks Procedure Date: 03/08/2018 Accession Number: [id number] / [id number] Procedure: US - OB First Trimester CPT Code: FULL RESULT: EXAM: FIRST TRIMESTER OBSTETRIC ULTRASOUND (Less than 11 weeks) EXAM DATE: 03/08/2018 01:16 PM. CLINICAL HISTORY: Cramping 5 weeks. LMP: Approximately 01/15/2018. Beta-hC COMPARISONS: Abdomen limited 12/22/2016 6:15 PM. Pelvic w/transvaginal 06/07/2017 8:33 AM. TECHNIQUE: Transabdominal and transvaginal ultrasound examination with static image documentation. CLINICAL DATES: EGA 7 weeks 3 days with SHORTY 10/22/2018 based on estimated last menstrual period. ASSESSMENT: Cystic intrauterine structures are identified with the following measurements: Gestational Sac: Single intrauterine. Mean gestational sac diameter: 5.7 mm = 4 weeks 3 days. Embryo: None identified. Cardiac activity: None identified. Yolk sac: 1.6 mm. No definite intrauterine gestation is seen. MATERNAL STRUCTURES: Uterus: Anteverted. Unremarkable. Cervix: Closed. Right Ovary/Adnexa: The ovary measures 3.4 x 2.3 x 2.9 cm, volume 11.8 cc. A well-circumscribed 2.4 x 2.0 1.9 cm echogenic lesion containing a 1.2 cm cystic portion is redemonstrated from prior studies and most likely represents a dermoid/teratoma. Left Ovary/Adnexa: The ovary measures 2.7 x 1.5 x 1.5 cm, volume 3.2 cc. Unremarkable. Free Fluid: None. Other: None. IMPRESSION: 1. of unknown location. Intrauterine fluid collection, which would represent a gestational sac, cyst, or focal fluid. If this is a gestational sac, size would correspond to a gestational age of 4 weeks and 3 days. Recommend close clinical follow-up and correlation with serial beta hCG, and follow-up ultrasound if indicated. 2. Stable right adnexal mass, likely dermoid/teratoma. RADIA
== END 2018-03-08 16:06 | disposition home or self-care (01) ==
LOC: ED 10:29
DX: O99.89 Other specified diseases and conditions complicating pregnancy, childbirth and the puerperium (principal); H66.002 Acute suppurative otitis media without spontaneous rupture of ear drum, left ear; R10.2 Pelvic and perineal pain; N85.8 Other specified noninflammatory disorders of uterus; Z3A.01 Less than 8 weeks gestation of pregnancy
CPT/HCPCS: 36415; 76801; 76817; 80053; 81001; 83690; 84702; 85025; 87070; 87077; 87086; 87430; 99283; 99284; A9270; 81003

== ENCOUNTER 2018-04-11 13:22 | Emergency (ER) | payer MEDICAID ==
[2018-04-11 13:28] VITALS: BP 132/66
[2018-04-11] MEDS ORDERED: AMOXICILLIN 250 MG CAPSULE PO STA (13:47)
--- NOTE | 2018-04-11 13:49 | ED Physician Documentation ---
History of Present Illness - Stated complaint Stated Complaint: THROAT PX - Chief complaint Chief Complaint: Heent - History obtained from History obtained from: Patient - History of Present Illness Timing: Today Pain level max: 5 Pain level now: 5 - Additonal information Additional information: 22-year-old female presents to the emergency department the complaint of sore throat for the past 3 days. and daughter are both currently being treated for streptococcal pharyngitis. They both had positive tests. She has not had fevers but has had chills. Worse with swallowing and better with rest. 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 HEENT: None Psych: None Musculoskeletal: None Derm: Eczema - Past Surgical History Past Surgical History: No Cardiovascular: Pacemaker - Present Medications Home Medications: Ambulatory Orders Medication Instructions Recorded Confirmed Amoxicillin 875 mg PO BID #20 tablet 04/11/18 - Allergies Allergies/Adverse Reactions: Allergies Allergy/AdvReac Type Severity Reaction Status Date / Time iodine AdvReac Rash Verified 04/11/18 13:28 - Social History Does the pt smoke?: No Smoking Status: Never smoker Does the pt drink ETOH?: No Does the pt have substance abuse?: No - Immunizations Immunizations are current?: Yes - POLST Patient has POLST: No PD ED PE NORMAL - Vitals Vital signs reviewed: Yes - General General: Alert and oriented X 3 - HEENT HEENT: PERRL, Moist mucous membranes, Other (Moderate posterior pharyngeal erythema with tonsillar exudates. Uvula midline. Normal phonation. No trismus) - Neck Neck: Supple, no meningeal sign, Other (Shotty anterior lymphadenopathy) - Cardiac Cardiac: RRR, Strong equal pulses - Respiratory Respiratory: No respiratory distress, Clear bilaterally - Abdomen Abdomen: Soft, Non tender, Non distended - Derm Derm: Warm and dry - Neuro Neuro: Alert and oriented X 3 - Psych Psych: Normal mood, Normal affect Results - Vitals Vitals: Vital Signs - 24 hr 04/11/18 13:26 Temperature 36.3 C L Heart Rate 90 Respiratory 16 Rate Blood Pressure 132/66 H O2 Saturation 100 Oxygen O2 Source Room air - Labs Labs: Laboratory Tests 04/11/18 13:30 Group A Strep Rapid POSITIVE H PD MEDICAL DECISION MAKING - ED course Complexity details: reviewed results, re-evaluated patient, considered differential, d/w patient ED course: 22-year-old female with strep pharyngitis. Will place on amoxicillin and fol low-up with her doctor as needed. She is well-appearing, nontoxic. Afebrile. Tolerating p.o. without difficulty. Patient counseled regarding signs and symptoms for which I believe and urgent re-evaluation would be necessary. Patient with good understanding of and agreement to plan and is comfortable going home at this time This document was made in part using voice recognition software. While efforts are made to proofread this document, sound alike and grammatical errors may occur. Departure - Departure Disposition: 01 Home, Self Care Clinical Impression: Strep pharyngitis Condition: Good Instructions: ED Strep Pharyngitis Conf Follow-Up: David Armando MD [Primary Care Provider] - As Needed Prescriptions: Amoxicillin 875 mg PO BID #20 tablet Comments: Take all antibiotics until gone. Return if you worsen. Your prescription was sent to [facility] in [place] today
== END 2018-04-11 13:55 | disposition home or self-care (01) ==
LOC: ED 13:22
DX: O26.891 Other specified pregnancy related conditions, first trimester (principal); J02.0 Streptococcal pharyngitis; Z3A.08 8 weeks gestation of pregnancy
CPT/HCPCS: 87430; 99283; A9270

== ENCOUNTER 2021-06-28 04:48 | Emergency (ER) | payer MEDICAID, OTHER ==
[2021-06-28 05:20] LABS: BASOPHILS % (AUTO) 0.2 %; EOSINOPHILS % (AUTO) 0.4 %; HCT - HEMATOCRIT 44.1 % (37.0-47.0); LYMPHOCYTES # (AUTO) 0.2 10^3/uL (1.5-3.5); LYMPHOCYTES % (AUTO) 2.2 %; MEAN CORPUSCULAR HEMOGLOBIN 28.5 pg (27.0-31.0); MEAN CORPUSCULAR VOLUME 83.8 fL (81.0-99.0); MEAN PLATELET VOLUME 10.8 fL (7.9-10.8); MONOCYTES # (AUTO) 0.2 10^3/uL (0.0-1.0); MONOCYTES % (AUTO) 2.5 %; NEUTROPHILS # (AUTO) 7.7 10^3/uL (1.5-6.6); NEUTROPHILS % (AUTO) 94.6 %; PLT - PLATELET COUNT 184 10^3/uL (130-450); RED BLOOD COUNT 5.26 10^6/uL (4.20-5.40); RED CELL DISTRIBUTION WIDTH 12.6 % (12.0-15.0); WHITE BLOOD COUNT 8.2 x10^3/uL (4.8-10.8)
--- NOTE | 2021-06-28 05:23 | ED Physician Documentation ---
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 HEENT: None Psych: None Musculoskeletal: None Derm: Eczema - Past Surgical History Past Surgical History: Yes Cardiovascular: Pacemaker - Allergies Allergies/Adverse Reactions: Allergies Allergy/AdvReac Type Severity Reaction Status Date / Time iodine AdvReac Rash Verified 06/28/21 04:55 - Social History Does the pt smoke?: No Smoking Status: Never smoker Does the pt drink ETOH?: Yes Does the pt have substance abuse?: No - Immunizations Immunizations are current?: Yes - POLST Patient has POLST: No Results - Vitals Vitals: Vital Signs - 24 hr 06/28/21 04:50 Temperature 36.6 C Heart Rate 79 Respiratory 18 Rate Blood Pressure 128/67 O2 Saturation 96 Oxygen O2 Source Room air - Labs Labs: Laboratory Tests 06/28/21 05:16 WBC 8.2 RBC 5.26 Hgb 15.0 Hct 44.1 MCV 83.8 MCH 28.5 MCHC 34.0 RDW 12.6 Plt Count 184 MPV 10.8 Neut # (Auto) 7.7 H Lymph # (Auto) 0.2 L [place] # (Auto) 0.2 Eos # (Auto) 0.0 Baso # (Auto) 0.0 Absolute Nucleated RBC 0.00 Nucleated RBC % 0.0
--- NOTE | 2021-06-28 05:25 | ED Physician Documentation ---
PD HPI NVD - Stated complaint Stated Complaint: N/V/D - Chief complaint Chief Complaint: Abd Pain - History obtained from History obtained from: Patient - History of Present Illness Timing - onset: Enter time (20:00), Last night Timing - details: Abrupt onset Associated symptoms: No: Fever, Abdominal pain Improved by: Other (no ameliorating factors) Worsened by: Eating Similar symptoms before: Has not had sx before Recently seen: Not recently seen - Additonal information Additional information: c/o nausea, vomiting, diarrhea since 8 PM last night. She says she is not tolerating any PO including sips of liquids. She took a dose of zofran (recently prescribed for her son who was T+R from this ED for similar symptoms) but this did not result in any change in symptom frequency nor severity Review of Systems Constitutional: denies: Fever Cardiac: reports: Reviewed and negative Respiratory: reports: Reviewed and negative GI: reports: Nausea, Vomiting, Diarrhea. 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 HEENT: None Psych: None Musculoskeletal: None Derm: Eczema - Past Surgical History Past Surgical History: Yes Cardiovascular: Pacemaker - Present Medications Home Medications: Ambulatory Orders Medication Instructions Recorded Confirmed Ondansetron Odt [Zofran] 4 mg TL Q6H PRN #14 tablet 06/28/21 - Allergies Allergies/Adverse Reactions: Allergies Allergy/AdvReac Type Severity Reaction Status Date / Time iodine AdvReac Rash Verified 06/28/21 04:55 - Social History Does the pt smoke?: No Smoking Status: Never smoker Does the pt drink ETOH?: Yes Does the pt have substance abuse?: No - Immunizations Immunizations are current?: Yes - POLST Patient has POLST: No PD ED PE NORMAL - Vitals Vital signs reviewed: Yes - General General: Alert and oriented X 3, No acute distress, Well developed/nourished - HEENT HEENT: Other (dry mucous membranes) - Neck Neck: Supple, no meningeal sign - Cardiac Cardiac: RRR - Respiratory Respiratory: No respiratory distress, Clear bilaterally - Abdomen Abdomen: Normal bowel sounds, Soft, Non tender, Non distended - Back Back: No CVA TTP PD ED PE EXPANDED - Cardiac Cardiac: Murmur Present (3/6 SARITA ) Results - Vitals Vitals: Vital Signs - 24 hr 06/28/21 06/28/21 04:50 07:25 Temperature 36.6 C 37.1 C Heart Rate 79 83 Respiratory 18 16 Rate Blood Pressure 128/67 118/63 O2 Saturation 96 97 Oxygen O2 Source Room air - Labs Labs: Laboratory Tests 06/28/21 06/28/21 06/28/21 05:16 05:16 07:15 WBC 8.2 RBC 5.26 Hgb 15.0 Hct 44.1 MCV 83.8 MCH 28.5 MCHC 34.0 RDW 12.6 Plt Count 184 MPV 10.8 Neut # (Auto) 7.7 H Lymph # (Auto) 0.2 L [place] # (Auto) 0.2 Eos # (Auto) 0.0 Baso # (Auto) 0.0 Absolute Nucleated RBC 0.00 Nucleated RBC % 0.0 Sodium 135 Potassium 3.8 Chloride 101 Carbon Dioxide 22 Anion Gap 12.0 BUN 19 Creatinine 0.9 Estimated GFR (MDRD) 77 L Glucose 171 H Calcium 9.3 Total Bilirubin 1.9 H AST 78 H ALT 114 H Alkaline Phosphatase 63 Total Protein 8.2 Albumin 4.9 Globulin 3.3 Albumin/Globulin Ratio 1.5 Lipase 27 Urine Color YELLOW Urine Clarity CLEAR Urine pH 5.5 Ur Specific [place] >=1.030 H Urine Protein NEGATIVE Urine Glucose (UA) NEGATIVE Urine Ketones NEGATIVE Urine Occult Blood MODERATE H Urine Nitrite NEGATIVE Urine Bilirubin NEGATIVE Urine Urobilinogen 0.2 (NORMAL) Ur Leukocyte Esterase NEGATIVE Urine RBC 0-5 Urine WBC 0-3 Ur Squamous Epith Cells FEW Squamous Urine Bacteria Many H Ur Microscopic Review INDICATED Urine Culture Comments NOT INDICATED Urine HCG, Qual NEGATIVE PD MEDICAL DECISION MAKING - ED course Complexity details: considered differential, d/w patient ED course: c/o n/v/d. Given 2 liters NS IV and 8 mg IV zofran and on reevaluation she is well-appearing and reports feeling significant improvement, feels well enough to go home . Blood tests are reassuring, with unremarkable CBC. She has mild transaminasemia, which she says she has been told in the past and per her description, sounds like she has recently been told she has KIM. She has bilirbuin of 1.9 which is likely also a finding that is coincident to today's symptoms. Departure - Departure Disposition: 01 Home, Self Care Clinical Impression: Vomiting, Diarrhea Condition: Good Instructions: ED Diet Vomiting Diarrhea, ED Vomiting Diarrhea Nonspecific Ad Prescriptions: Ondansetron Odt [Zofran] 4 mg TL Q6H PRN #14 tablet PRN Reason: Nausea / Vomiting Comments: A prescription for ondansetron has been electronically submitted to [facility] pharmacy. You can take imodium (over the counter) for diarrhea as directed on label. Your blood tests are mostly unremarkable; as we discussed your liver function tests were mildly abnormal (bilirubin 1.9, AST 78, ALT 114) Discharge Date/Time: 06/28/21 08:19
[2021-06-28 05:33] LABS: ALBUMIN 4.9 g/dL (3.2-5.5); ALBUMIN/GLOBULIN RATIO 1.5 (1.0-2.2); BILIRUBIN,TOTAL 1.9 mg/dL (0.2-1.0); CALCIUM 9.3 mg/dL (8.5-10.3); CREATININE 0.9 mg/dL (0.4-1.0); POTASSIUM 3.8 mmol/L (3.5-5.0); TOTAL PROTEIN 8.2 g/dL (6.7-8.2)
[2021-06-28] MEDS ORDERED: SODIUM CHLORIDE 0.9% 1,000 ML, SODIUM CHLORIDE 0.9% 1,000 ML IV STA ×2 (05:40)
[2021-06-28] MEDS ORDERED: ONDANSETRON 4 MG/2 ML VIAL IVP STA (05:40)
[2021-06-28 07:25] VITALS: BP 118/63
[2021-06-28 07:25] LABS: BILIRUBIN,URINE NEGATIVE (NEGATIVE); GLUCOSE, URINE (UA) NEGATIVE (NEGATIVE); KETONES,URINE (UA) NEGATIVE (NEGATIVE); LEUKOCYTE ESTERASE, URINE NEGATIVE (NEGATIVE); NITRITE,URINE NEGATIVE (NEGATIVE); OCCULT BLOOD,URINE MODERATE (NEGATIVE); PH,URINE 5.5 PH (5.0-7.5); PROTEIN,URINE NEGATIVE (NEGATIVE); UROBILINOGEN,URINE 0.2 (NORMAL) E.U./dL (NORMAL)
[2021-06-28 07:26] LABS: CLARITY,URINE CLEAR (CLEAR)
[2021-06-28 07:28] LABS: HCG UR QUAL NEGATIVE
[2021-06-28 07:42] LABS: WBC,URINE 0-3 /HPF (0-5)
[2021-06-28 07:43] LABS: BACTERIA,URINE Many /HPF (None Seen); RBC,URINE 0-5 /HPF (0-5); SQUAMOUS EPITHELIAL CELL,UR FEW Squamous (<= Few)
== END 2021-06-28 08:19 | disposition home or self-care (01) ==
LOC: ED 04:48
DX: R11.2 Nausea with vomiting, unspecified (principal); R19.7 Diarrhea, unspecified
CPT/HCPCS: 36415; 80053; 81001; 81003; 81025; 83690; 85025; 87086; 96361; 96374; 99282